=== PATIENT | female | born 1985 | race Caucasian/White ===

== ENCOUNTER 2017-03-26 12:58 | Emergency (ER) | payer BC ==
--- NOTE | 2017-03-26 15:07 | UC ---
Respiratory Complaint HPI - HPI Summary HPI Summary: Pt presents with c/o cough X 6 weeks. Pt was treated 3-4 weeks ago for bronchitis, completed a z-manny and has an albuterol inhaler. Pt reports that she is feeling better but continues to cough that keeps her up at night - History of Current Complaint Chief Complaint: UCGeneralIllness Stated Complaint: COUGH Time Seen by Provider: 03/26/17 15:01 Hx Obtained From: Patient Hx Last Menstrual Period: APPROX 1 WK AGO ?: No Onset/Duration: Gradual Onset, Lasting Weeks, Still Present Timing: Constant Severity Initially: Mild Severity Currently: Mild Character: Cough: Nonproductive Aggravating Factors: Allergens, Exertion, Deep Breaths, Recumbent Position Alleviating Factors: Nothing - Allergies/Home Medications Allergies/Adverse Reactions: Allergies Allergy/AdvReac Type Severity Reaction Status Date / Time Aspirin AdvReac Nausea And Verified 03/26/17 13:51 Vomiting Home Medications: Home Medications GuaiFENesin DM* [Robitussin DM*] 5 ml PO Q6H PRN 03/26/17 [History Confirmed ] Migraine Med 1 tab PO BEDTIME 03/26/17 [History Confirmed 03/26/17] Migraine Med 1 tab PO DAILY PRN 03/26/17 [History Confirmed 03/26/17] Mini-Pill 1 tab PO DAILY 03/26/17 [History Confirmed 03/26/17] PMH/Surg Hx/FS Hx/Imm Hx Previously Healthy: Yes - Surgical History Surgical History: Yes Surgery Procedure, Year, and Place: C-SECT--1999. CHOLECYSTECTOMY--2001. HERNIA REPAIR--2010. HERNIA REPAIR-2015 - Family History Known Family History: Positive: Cardiac Disease - Social History Occupation: Employed Full-time Lives: With Family Alcohol Use: Rare Substance Use Type: None Smoking Status (MU): Never Smoked Tobacco Have You Smoked in the Last Year: No Review of Systems Constitutional: Negative Skin: Negative Eyes: Negative ENT: Negative Respiratory: Cough Cardiovascular: Negative Gastrointestinal: Negative Genitourinary: Negative Motor: Negative Neurovascular: Negative Musculoskeletal: Negative Neurological: Negative Psychological: Negative Is Patient Immunocompromised?: No All Other Systems Reviewed And Are Negative: Yes Physical Exam Triage Information Reviewed: Yes Appearance: Ill-Appearing Vital Signs: Initial Vital Signs Temp 97.8 F 03/26/17 13:44 Pulse 100 03/26/17 13:44 Resp 16 03/26/17 13:44 BP 130/83 03/26/17 13:44 Pulse Ox 100 03/26/17 13:44 Vital Signs Reviewed: Yes Eye Exam: Normal ENT Exam: Normal Dental Exam: Normal Neck exam: Normal Respiratory Exam: Normal Respiratory: Positive: Normal breath sounds Cardiovascular Exam: Normal Musculoskeletal Exam: Normal Neurological Exam: Normal Psychological Exam: Normal Skin Exam: Normal UC Diagnostic Evaluation - Laboratory O2 Sat by Pulse Oximetry: 100 Respiratory Course/Dx - Differential Dx/Diagnosis Differential Diagnosis/HQI/PQRI: Bronchitis, Pulmonary Embolism, Other - post viral cough Provider Diagnoses: post viral cough Discharge - Discharge Plan Condition: Stable Disposition: HOME Prescriptions: Benzonatate CAP* [Tessalon 100 MG CAP*] 100 mg PO Q8H PRN #30 cap PRN Reason: Cough predniSONE TAB* [Deltasone TAB*] 30 mg PO DAILY #9 tab Patient Education Materials: Acute Cough (ED) Forms: *Work Release Referrals: Juani Charlton MD [Primary Care Provider] - If Needed Additional Instructions: Please follow up with your PCP or return to clinic.
[2017-03-26 15:18] VITALS: BP 121/77
== END 2017-03-26 15:20 | disposition home or self-care (01) ==
LOC: UCCORT 12:58
DX: R05 Cough (principal); Z88.6 Allergy status to analgesic agent
CPT/HCPCS: 99202; G0463

== ENCOUNTER 2017-03-28 13:45 | Emergency (ER) | payer BC ==
[2017-03-28 16:01] LABS: Hematocrit 36 % (35-47); Hemoglobin 12.1 g/dl (12.0-16.0); Mean Corpuscular HGB Conc 34 g/dl (31-36); Mean Corpuscular Hemoglobin 28 pg (27-31); Mean Corpuscular Volume 82 fL (80-97); Mean Platelet Volume 8 um3 (7.4-10.4); Red Blood Count 4.38 10^6/ul (4.0-5.4); Red Cell Distribution Width 13 % (10.5-15); White Blood Count 15.2 10^3/ul (3.5-10.8)
[2017-03-28 16:22] LABS: Albumin 3.6 g/dL (3.2-5.2); BUN/Creatinine Ratio 12.7 (8-20); Calcium 8.3 mg/dL (8.6-10.3); EGFR African American 163.7 (>60); EGFR Non-African American 127.3 (>60); Globulin 2.8 g/dL (2-4); Potassium 2.9 mmol/L (3.5-5.0); Total Bilirubin 0.4 mg/dL (0.2-1.0); Total Protein 6.4 g/dL (6.4-8.9)
[2017-03-28] MEDS ORDERED: NS 0.9% 1000 ML* 2,000 ML IV ONE (16:36)
--- NOTE | 2017-03-28 16:36 | ED ---
GI/ HPI - HPI Summary HPI Summary: 31 female presents to ED with complaint of vaginal bleeding that began just [employer]. Patient states she was at work when she went to go to the bathroom and had a gush of blood, and vaginal bleeding. States she has never had anything like this happened to her before. Denies any other discharge or complaints. Minimal cramping in lower suprapubic area. Feels fine now. States she was having golf ball size clots. Denies feeling lightheaded, dizzy. No other complaints. No PMHx. Has not taken any medications. No abdominal pain. Normal urination and bowel movements. LMP was 1 week ago. Stopped taking OCP 1 month ago due to not having any left. Unknown if , but does not believe so. . Denies any miscarriages. Normal births, one c section. No know /Repr history - History of Current Complaint Chief Complaint: EDVaginalBleeding Time Seen by Provider: 03/28/17 14:35 Stated Complaint: dizzy Hx Obtained From: Patient Hx Last Menstrual Period: APPROX 1 WK AGO Onset/Duration: Started Hours Ago Timing: Constant Severity: Severe Current Severity: Moderate Vaginal Bleeding Description: Bright Red, Dark Red Number of Pads per Hour: 2 - when standing Pain Intensity: 3 Location of Pain: Suprapubic Pain Characteristics: Cramping Additional Signs & Symptoms: Positive: Vaginal Bleeding, Menses Regular - Risk Factors GI Bleed Risk Factor(s): Negative - Allergy/Home Medications Allergies/Adverse Reactions: Allergies Allergy/AdvReac Type Severity Reaction Status Date / Time Aspirin AdvReac Nausea And Verified 03/26/17 13:51 Vomiting Home Medications: Home Medications SUMAtriptan TAB* [Imitrex TAB*] 100 mg PO DAILY PRN 03/28/17 [History Confirmed 03/28/17] ZOLMitriptan ODT(NF) [Zomeg ODT (NF)] 5 mg PO ONCE PRN 03/28/17 [History Confirmed 03/28/17] Zonisamide (NF) [Zonegran (NF)] 100 mg PO BEDTIME 03/28/17 [History Confirmed ] PMH/Surg Hx/FS Hx/Imm Hx Cardiovascular History: Denies: Hx Hypertension Respiratory History: Denies: Hx Asthma - Surgical History Surgery Procedure, Year, and Place: C-SECT--1999. CHOLECYSTECTOMY--2001. HERNIA REPAIR--2010. HERNIA REPAIR-2016 - Immunization History Immunizations Up to Date: Yes Infectious Disease History: No Infectious Disease History: Denies: Traveled Outside the [place] in Last 30 Days - Family History Known Family History: Positive: Cardiac Disease - Social History Alcohol Use: Rare Substance Use Type: Reports: None Smoking Status (MU): Never Smoked Tobacco Have You Smoked in the Last Year: No Review of Systems Constitutional: Negative Cardiovascular: Negative Respiratory: Negative Genitourinary: Other - vaginal bleeding Positive: see HPI Positive: Headache All Other Systems Reviewed And Are Negative: Yes Physical Exam Triage Information Reviewed: Yes Vital Signs On Initial Exam: Initial Vitals Temp Pulse Resp BP Pulse Ox 99.4 F 90 20 107/58 100 03/28/17 14:12 03/28/17 14:12 03/28/17 14:12 03/28/17 14:12 03/28/17 14:12 Vital Signs Reviewed: Yes Appearance: Positive: Well-Appearing, No Pain Distress, Well-Nourished Skin: Positive: Warm, Skin Color Reflects Adequate Perfusion, Dry. Negative: Cold, Cyanosis @, Pale Head/Face: Positive: Normal Head/Face Inspection Eyes: Positive: Conjunctiva Clear ENT: Positive: Hearing grossly normal Neck: Positive: Supple, Nontender Respiratory/Lung Sounds: Positive: Clear to Auscultation, Breath Sounds Present. Negative: Rales, Rhonchi, Wheezes Cardiovascular: Positive: Normal, RRR, Pulses are Symmetrical in both Upper and Lower Extremities. Negative: Murmur, Rub Abdomen Description: Positive: Nontender, No Organomegaly, Soft. Negative: CVA Tenderness (R), CVA Tenderness (L), Distended, Guarding, Peritoneal Signs Bowel Sounds: Positive: Present Pelvic Exam: Positive: external exam normal, bimanual exam normal, no cerv. motion tender, no masses, active bleeding, blood, other - somewhat limited due to bleeding Musculoskeletal: Positive: Normal, Strength/ROM Intact Neurological: Positive: Normal, Sensory/Motor Intact, Alert, Oriented to Person Place, Time, Reflexes Intact, NV Bundle Intact Distally, Normal Gait Psychiatric: Positive: Affect/Mood Appropriate - [place] Coma Scale Coma Scale Total: 15 Diagnostics - Vital Signs Vital Signs Temp Pulse Resp BP Pulse Ox 03/28/17 16:00 93 127/78 100 03/28/17 15:55 97 100 03/28/17 15:53 120/68 03/28/17 14:12 99.4 F 90 20 107/58 100 - Laboratory Lab Results: Lab Results 03/28/17 03/28/17 03/28/17 Range/Units 15:50 15:50 15:50 WBC 15.2 H (3.5-10.8) 10^3/ul RBC 4.38 (4.0-5.4) 10^6/ul Hgb 12.1 (12.0-16.0) g/dl Hct 36 (35-47) % MCV 82 (80-97) fL MCH 28 (27-31) pg MCHC 34 (31-36) g/dl RDW 13 (10.5-15) % Plt Count 300 (150-450) 10^3/ul MPV 8 (7.4-10.4) um3 Neut % (Auto) 80.4 (38-83) % Lymph % (Auto) 13.9 L (25-47) % Jenkins % (Auto) 4.1 (1-9) % Eos % (Auto) 0.8 (0-6) % Baso % (Auto) 0.8 (0-2) % Absolute Neuts (auto) 12.2 H (1.5-7.7) 10^3/ul Absolute Lymphs (auto) 2.1 (1.0-4.8) 10^3/ul Absolute Monos (auto) 0.6 (0-0.8) 10^3/ul Absolute Eos (auto) 0.1 (0-0.6) 10^3/ul Absolute Basos (auto) 0.1 (0-0.2) 10^3/ul Absolute Nucleated RBC 0 10^3/ul Nucleated RBC % 0 INR (Anticoag Therapy) 1.13 H (0.89-1.11) APTT 27.9 (26.0-36.3) seconds Sodium 137 (133-145) mmol/L Potassium 2.9 L (3.5-5.0) mmol/L Chloride 106 (101-111) mmol/L Carbon Dioxide 23 (22-32) mmol/L Anion Gap 8 (2-11) mmol/L BUN 7 (6-24) mg/dL Creatinine 0.55 (0.51-0.95) mg/dL Est GFR ( Amer) 163.7 (>60) Est GFR (Non-Af Amer) 127.3 (>60) BUN/Creatinine Ratio 12.7 (8-20) Glucose 98 (70-100) mg/dL Lactic Acid (0.5-2.0) mmol/L Calcium 8.3 L (8.6-10.3) mg/dL Total Bilirubin 0.40 (0.2-1.0) mg/dL AST 21 (13-39) U/L ALT 15 (7-52) U/L Alkaline Phosphatase 49 (34-104) U/L Total Protein 6.4 (6.4-8.9) g/dL Albumin 3.6 (3.2-5.2) g/dL Globulin 2.8 (2-4) g/dL Albumin/Globulin Ratio 1.3 (1-3) 03/28/ Range/Units 15:50 WBC (3.5-10.8) 10^3/ul RBC (4.0-5.4) 10^6/ul Hgb (12.0-16.0) g/dl Hct (35-47) % MCV (80-97) fL MCH (27-31) pg MCHC (31-36) g/dl RDW (10.5-15) % Plt Count (150-450) 10^3/ul MPV (7.4-10.4) um3 Neut % (Auto) (38-83) % Lymph % (Auto) (25-47) % Jenkins % (Auto) (1-9) % Eos % (Auto) (0-6) % Baso % (Auto) (0-2) % Absolute Neuts (auto) (1.5-7.7) 10^3/ul Absolute Lymphs (auto) (1.0-4.8) 10^3/ul Absolute Monos (auto) (0-0.8) 10^3/ul Absolute Eos (auto) (0-0.6) 10^3/ul Absolute Basos (auto) (0-0.2) 10^3/ul Absolute Nucleated RBC 10^3/ul Nucleated RBC % INR (Anticoag Therapy) (0.89-1.11) APTT (26.0-36.3) seconds Sodium (133-145) mmol/L Potassium (3.5-5.0) mmol/L Chloride (101-111) mmol/L Carbon Dioxide (22-32) mmol/L Anion Gap (2-11) mmol/L BUN (6-24) mg/dL Creatinine (0.51-0.95) mg/dL Est GFR ( Amer) (>60) Est GFR (Non-Af Amer) (>60) BUN/Creatinine Ratio (8-20) Glucose (70-100) mg/dL Lactic Acid 0.9 (0.5-2.0) mmol/L Calcium (8.6-10.3) mg/dL Total Bilirubin (0.2-1.0) mg/dL AST (13-39) U/L ALT (7-52) U/L Alkaline Phosphatase (34-104) U/L Total Protein (6.4-8.9) g/dL Albumin (3.2-5.2) g/dL Globulin (2-4) g/dL Albumin/Globulin Ratio (1-3) Result Diagrams: 03/28/17 15:50 03/28/17 15:50 Lab Statement: Any lab studies that have been ordered have been reviewed, and results considered in the medical decision making process. - Ultrasound No standard instances Ultrasound Interpretation: Positive (See Comments) - ENLARGED UTERUS. THICKENED ENDOMETRIUM. SUGGEST FOLLOW-UP Ultrasound Interpretation Completed By: Radiologist ROYN Course/Dx - Course Course Of Treatment: patient states endometrium has also been thick and that is a normal finding for her in previous us and pregnancies. US obtained and was negative for ectopic, ovarian torsion, ovarian cyst, fibroids and . Labs unremarkable, not anemic, however beta HCG positive. Unknown . Appears to have suffered a miscarriage. No concern for any other injury at this time. Patient was supported and consoled. Upset about news. No concern for hemorrhaging at this time. Aware of worsening signs and symptoms to watch out for. Follow up for repeat US and labs in 2-3 days with OBGYN. Tylenol/motrin for pain and discomfort as needed. patient refused vaginal cultures during exam. - Diagnoses Differential Diagnoses - Female: Ectopic , Ovarian Cyst, Ovarian Torsion, , Threatened , Other - vaginal bleeding, menses, miscarriage, fibroids Provider Diagnoses: Miscarriage, Vaginal bleeding Discharge - Discharge Plan Condition: Stable Disposition: HOME Patient Education Materials: First Trimester Vaginal Bleed (ED), Miscarriage ( ED) Referrals: Juani Charlton MD [Primary Care Provider] - Additional Instructions: If you develop worsening signs and symptoms as discussed, fainting, excessive bleeding/hemorrhaging, increasing pain please seek medical attention immediately. Drink plenty of fluids and stay well hydrated. Tylenol or motrin for discomfort. Heating pads are also useful. Please make an appointment for follow up with OBGYN. Rest, stay home, and be around supportive family and friends during this difficult time.
--- NOTE | 2017-03-28 17:40 | RAD ---
INDICATION: Vaginal bleeding COMPARISON: None TECHNIQUE: Longitudinal and transverse transvaginal scans of the pelvis were obtained. FINDINGS: Uterus: The uterus is enlarged. There are no focal masses. The uterus measures 14.4 7.5 x 9.8 cm. Endometrial thickness: The endometrial thickness is measured at 2.3 cm. There is heterogeneity in the echotexture of the endometrium. Free fluid: There is no significant free fluid . Ovaries: The ovaries are normal in size. The right ovary measures 3.1 x 1.4 x 2.1 cm. The left ovary measures 3.9 x 2.2 x 1.9 cm. . Doppler interrogation demonstrates flow to each ovary. Other: None IMPRESSION: ENLARGED UTERUS. THICKENED ENDOMETRIUM. SUGGEST FOLLOW-UP
[2017-03-28 20:01] VITALS: BP 118/70
== END 2017-03-28 20:00 | disposition home or self-care (01) ==
LOC: ED 13:45
DX: O03.9 Complete or unspecified spontaneous abortion without complication (principal); N93.9 Abnormal uterine and vaginal bleeding, unspecified
CPT/HCPCS: 36415; 76830; 80053; 83605; 84702; 85025; 85610; 85730; 86850; 86900; 86901; 99283